=== PATIENT | female | born 1940 | race Caucasian/White ===

== ENCOUNTER 2016-08-21 10:59 | Emergency (ER) | payer MEDICARE, OTHER ==
[~2016-08-21] VITALS: Ht 170.2 cm; Wt 81.8 kg
[2016-08-21 11:01] VITALS: BP 112/60; TEMP 100.1
[2016-08-21 11:42] LABS: BASO % 0.4 % (0.0-2.0); EOS % 0.1 % (0-4.0); GRAN # 5.3 (1.4-6.5); GRAN % 72.4 % (42.2-75.2); HEMATOCRIT 40.6 % (37.0-47.0); HEMOGLOBIN 13.6 g/dl (12.5-16.0); LYMPH # 1.4 (1.2-3.4); LYMPH % 18.6 % (20.0-51.0); MEAN CELL VOLUME 85 fl (80.0-100.0); MEAN CORPUSCULAR HEMOGLOBIN 29 pg (27.0-31.0); MEAN CORPUSCULAR HGB CONC 34 g/dl (33.0-37.0); MEAN PLATELET VOLUME 9.5 fl (7.4-10.4); MONO # 0.6 (0.1-0.6); MONO % 8.4 % (1.7-9.3); PLATELET COUNT 223 K/mm3 (130-400); RED BLOOD COUNT 4.77 M/mm3 (4.10-5.30); REDCELL DISTRIBUTION WIDTH-CV 13.4 % (11.5-14.5); WHITE BLOOD COUNT 7.3 K/mm3 (4.8-10.8)
[2016-08-21 11:51] LABS: ADJUSTED CALCIUM 9.2 mg/dL (8.4-10.2); ALBUMIN 4.1 gm/dL (3.5-5.0); BILIRUBIN,TOTAL 1.1 mg/dL (0.0-1.0); CALCIUM 9.3 mg/dL (8.4-10.2); CREATININE, serum 0.89 mg/dL (0.52-1.25); POTASSIUM 3.3 mmol/L (3.4-5.0)
[2016-08-21 12:07] LABS: PH 5 (5-8); URINE APPEARANCE Cloudy; URINE BACTERIA Rare /hpf; URINE BILIRUBIN Negative (NEGATIVE); URINE BLOOD 1+ (NEGATIVE); URINE COLOR Amber; URINE GLUCOSE Negative (NEGATIVE); URINE KETONE Trace (NEGATIVE)
[2016-08-21 12:08] LABS: URINE WBC >50 /hpf
[2016-08-21] MEDS ORDERED: ZOFRAN 4MG T4 MG/TAB PO (12:47)
[2016-08-21] MEDS ORDERED: OMNICEF 300MG300 MG PO (12:47)
[2016-08-21 13:30] VITALS: PULSE 99
== END 2016-08-21 13:56 | disposition home or self-care (01) ==
LOC: COL.ER 10:59
PROVIDERS: Emergency Medicine
DX: N39.0 Urinary tract infection, site not specified (principal); J44.9 Chronic obstructive pulmonary disease, unspecified; F17.200 Nicotine dependence, unspecified, uncomplicated
CPT/HCPCS: J0696; J7030

== ENCOUNTER 2021-01-16 08:41 | Inpatient (IN) | payer MEDICARE, OTHER ==
[~2021-01-16] VITALS: Ht 170.2 cm; Wt 84.8 kg
[~2021-01-16 08:41] MED LIST: OMNICEF 300MG300 MG PO; ZOFRAN 4MG T4 MG/TAB PO
[2021-02-17] VITALS (12 sets, daily range): BP systolic 99–132; BP diastolic 36–68; PULSE 84–102; TEMP 97–97.9
[2021-02-17] MEDS ORDERED: PLAVIX 75MG TAB75 MG PO (05:57)
[2021-02-17] MEDS ORDERED: ASPIRIN 81M81 MG/TA2 PO (05:57)
[2021-02-17] MEDS ORDERED: PHARMASSURE ZIN50 MG PO (05:57)
[2021-02-17] MEDS ORDERED: HYZAAR 50-12.1 UDTAB PO (05:58)
[2021-02-17] MEDS ORDERED: VITAMIN D250 MCG PO (05:58)
[2021-02-17] MEDS ORDERED: ZYRTEC ALLERGY10 MG PO (05:58)
[2021-02-17] MEDS ORDERED: LIPITOR 40MG TA40 MG PO (05:59)
[2021-02-17] MEDS ORDERED: PROBIOTIC BLEN1 EACH PO (05:59)
--- NOTE | 2021-02-17 06:24 | NUR ---
The patient ambulated back to [facility] independently usinig a steady gait. The patient did have vomit a large amount of red tinged emesis in the waiting room which is states "was from the gatorade". The patientn feels better after the episode and denies any further nausea/vomiting. Vital signs obtained. Consent signed. 18G IV started in right hand with one stick, LR infusing without difficulty. Blood obtained for retype on type and screen ordered. Assessment completed. Warm blanket provided. Son brought back to be at her bedside. Call light is within reach. Will continue to monitor the patient.
--- NOTE | 2021-02-17 07:05 | NUR ---
The patient was taken over to the recovery room to have regional anesthesia placed by anesthesia prior to the OR. The patient's chart was sent with her. The patient's belongings were taken over to the recovery room and will be transferred up with the patient post operatively to the 3rd floor. The patient's son is going to head home and will be called updates to his cellphone.
[2021-02-17] MEDS ORDERED: VITAMIN D 400400 IU PO (12:21)
--- NOTE | 2021-02-17 12:43 | NUR ---
Patient has been resting post op. Vss on O2. Ivf per orders to Pee. Provided her with hot tea and ice water, reports sore throat. I explained Eras protocol. She reports tylenol does not work with her, but I discussed eras. Scds ble. Abdomen rounded, bowels quiet. Lap site x5, bandaids intact. Larger incisions with gauze intact. Will continue to closely monitor.
--- NOTE | 2021-02-17 15:46 | NUR ---
Patient assisted to the chair, she reports feeling slightly dizzy when up. Pain increased after movement. Kpad provided for comfort, she is wanting to avoid narcotics at this time. Champion to DD with pale yellow urine. Vitals stable on room air. Will monitor.
--- NOTE | 2021-02-17 19:16 | NUR ---
Patient sitting up in chair. Her son at bedside. She tolerated clear liquid tray. Ivf. Incisions dressing clean dry & intact. Champion to DD, adequate urine output. report to daniel Casey.
--- NOTE | 2021-02-17 20:30 | NUR ---
ASSISTED BACK TO BED FROM CHAIR AT BEDSIDE. PT IS ALERT AND ORIENTED X4. HAS IVF INFUSING TO RT HAND WITHOUT REDNESS OR SWELLING. HAS LAP SITES X5 AND SMALL MIDLINE INCISION WITH GAUZE DRSG INTACT. TEJADA TO BSD WITH YELLOW URINE. DENIES NEED FOR STRONGER PAIN MEDS, TAKING SCHEDULED ES TYLENOL.
[2021-02-18 00:13] VITALS: BP 111/37; PULSE 91; TEMP 97.8
[2021-02-18 04:19] VITALS: BP 117/38; PULSE 84; TEMP 98.3
--- NOTE | 2021-02-18 05:10 | NUR ---
PT RESTING WELL. IVF CONTINUE. TEJADA WITH 1250CC URINE OUTPUT.
--- NOTE | 2021-02-18 06:15 | NUR ---
PT REPORTS PASSING FLATUS X2 THIS AM.
[2021-02-18 07:14] VITALS: BP 112/43; PULSE 82; TEMP 98
[2021-02-18 07:31] LABS: HEMATOCRIT 30.3 % (37.0-47.0)
[2021-02-18 07:44] LABS: CALCIUM 8.3 mg/dL (8.4-10.2); CREATININE, serum 1.33 mg/dL (0.57-1.11); POTASSIUM 3.6 mmol/L (3.5-4.5)
[2021-02-18 11:12] VITALS: BP 137/51; PULSE 89; TEMP 97.6
--- NOTE | 2021-02-18 11:27 | NUR ---
Patient sitting up in chair. We ambulated halls, dyspnea with exertion. Champion Dc, voided without difficulty. Tolerated a light general diet breakfast. Denies nausea. Reports he has passed flatus. Abdominal incision site dressing Cdi. Bowels are quiet. Will monitor.
--- NOTE | 2021-02-18 13:10 | NUR ---
Plant Breeder offered prayer and support with patient.
--- NOTE | 2021-02-18 15:02 | NUR ---
SW met with patient to complete intake. Patient states that she lives alone in [facility] and her point of contact is her son Raymond Markham. Patient provides that she does not utilize DME and is independent with ADL's. Patient states that her PCP is Dr. Nguyen and her pharmacy is [facility] [place], patient also provides that her DPOA-HC is her son Raymond, and she plans to return to her home upon DC and has no concerns with doing so. SW will continue to follow. DC plan: home/patient provides that her sons stated they will be staying with her upon DC.
--- NOTE | 2021-02-18 15:36 | NUR ---
Patient up to the bathroom. Voided. Watching backetball. Her son visited. WIll monitor.
[2021-02-18 16:00] VITALS: BP 139/44; PULSE 87; TEMP 97.7
[2021-02-18] MEDS ORDERED: ALEVE 220MG220 MG PO (17:33)
--- NOTE | 2021-02-18 17:59 | NUR ---
Patient dinner ordered. Tyelnol per Malick. Patient wondering when she will be able to take alieve again. Encouraged patient to ask doctor in AM when he rounds. Patient was up to the bathroom independently & voided.
--- NOTE | 2021-02-18 20:00 | NUR ---
PT UP IN RECLINER AT BEDSIDE. ASSISTED TO BATHROOM THEN TO BED. VOIDING WELL, GAIT STEADY. HAS SL TO RT HAND, FLUSHES WELL.
[2021-02-18 20:24] VITALS: BP 126/64; PULSE 85; TEMP 97.9
--- NOTE | 2021-02-18 20:29 | NUR ---
MEDICATED WITH HS MEDS INCLUDING OXYCODONE 5MG PO FOR PERSISTENT ABD PAIN. LAP SITES X5 D/I WITH BANDAIDS, GAUZE DRSG TO SMALL MIDLINE, D/I. PASSING GAS WITHOUT DIFFICULTY.
[2021-02-19] VITALS (7 sets, daily range): BP systolic 120–144; BP diastolic 45–59; PULSE 69–83; TEMP 97.6–98.2
--- NOTE | 2021-02-19 00:30 | NUR ---
PT REPORTS RESTING WELL AFTER OXYCODONE. TAKES SCHEDULED ES TYLENOL AT THIS TIME.
--- NOTE | 2021-02-19 05:00 | NUR ---
PT REPORTS GOOD REST. SBA TO BATHROOM, VOIDS AND BACK TO BED.
--- NOTE | 2021-02-19 08:00 | NUR ---
PATIENT IS A&O. VSS. REPORTS ABD PAIN IS MILD, APPROX 2-3. PATIENT REPORTS SHE TOOK A PAIN PILL BEFORE BED AND SLEPT VERY WELL. ABD LAP SITES X5 ARE CD&I WITH BANDAIDS. ABD MIDLINE IS CD&I WITH GAUZE. ABD IS ROUND, SOFT AND WITH POSITIVE BOWL SOUNDS. NO C/O N/V. AM MEDS GIVEN WITH SIPS. HEAD TO TOE ASSESSMENT COMPLETE. PATIENT HOPING TO DISCHARGE HOME LATER TODAY. NO OTHER NEEDS. CALL LIGHT IN REACH.
--- NOTE | 2021-02-19 21:26 | NUR ---
PT IN BED. HAS WILLIS INTACT TO SMALL MIDLINE AND 5 ROBOTIC SITES, ALL D/I. SL TO RT HAND FLUSHES WELL. REPORTS PAIN IS MINIMAL. MEDICATED WITH HS MEDS AT THIS TIME.
--- NOTE | 2021-02-20 00:55 | NUR ---
TAKES OXYCODONE PO FOR MINIMAL ABD PAIN.
[2021-02-20 04:05] VITALS: BP 137/44; PULSE 71; TEMP 98
[2021-02-20 07:32] VITALS: BP 134/52; PULSE 66; TEMP 97.4
[2021-02-20] MEDS ORDERED: PERCOCET 325 MG1 TA2 PO (08:52)
--- NOTE | 2021-02-20 09:38 | NUR ---
Initial visit; Patient and her son thanked for stopping. Rut was elated to tell her son had come to take her home. wished her well.
--- NOTE | 2021-02-20 09:55 | NUR ---
PATIENT IS DISCHARGING HOME VIA WC TO PERSONAL VEHICLE WITH HER SON. GAVE DISCHARGE INSTRUCTIONS, E-SCRIPTS SENT, AND F/U APT DISCUSSED. ANSWERED QUESTIONS/CONCERNS. DC'D RIGHT HAND IV, COVERED WITH BANDAID. PATIENT IS DRESSED, PACKED AND DISCHARGED.
--- NOTE | 2021-02-20 10:00 | NUR ---
PATIENT IS A&O. VSS. DENIES PAIN OR NAUSEA. ABD LAP SITES X5 WITH WILLIS INTACT AND LABOR CONTRACTOR, PATIENT REQUESTING BANDAIDS SO THE WILLIS DO NOT SNAG ON HER CLOTHES. BANDAIDS APPLIED TO LAP SITES AND ABD MIDLINE. ABD IS ROUND, SOFT AND WITH POSITIVE BOWL SOUNDS. BREAKFAST TRAY AT BEDSIDE. AM MEDS GIVEN. RIGHT HAND IV TO INT. HEAD TO TOE ASSESSMENT WNL. PATIENT VOIDING SUFFICIENT AMOUNTS AND HOPING TO DISCHARGE HOME LATER TODAY. PATIENT IS INDEPENDENT IN ROOM. CALL LIGHT IN REACH. NO OTHER NEEDS AT THIS TIME.
== END 2021-02-20 09:55 | disposition home or self-care (01) | DRG 658 ==
LOC: INPTSU 02-17 05:22 → SURG 02-17 05:22
PROVIDERS: ADMIT Urology
PROC: 0TT14ZZ Resection of Left Kidney, Percutaneous Endoscopic Approach (ICD-10-PCS; principal; 2021-02-17 07:30)
DX: C64.2 Malignant neoplasm of left kidney, except renal pelvis (principal); I10 Essential (primary) hypertension; E11.9 Type 2 diabetes mellitus without complications; Z79.82 Long term (current) use of aspirin; Z86.16 Personal history of COVID-19; Z90.710 Acquired absence of both cervix and uterus; Z86.73 Personal history of transient ischemic attack (TIA), and cerebral infarction without residual deficits
CPT/HCPCS: A4314; A9284; J0690; J1100; J2250; J2405; J2704; J2795; J7120

== ENCOUNTER → 2021-02-16 | Outpatient (CLI) | payer MEDICARE, OTHER ==
[~2021-02-16] MED LIST changes: +ALEVE 220MG220 MG PO; +ASPIRIN 81M81 MG/TA2 PO; +HYZAAR 50-12.1 UDTAB PO; +LIPITOR 40MG TA40 MG PO; +PERCOCET 325 MG1 TA2 PO; +PHARMASSURE ZIN50 MG PO; +PLAVIX 75MG TAB75 MG PO; +PROBIOTIC BLEN1 EACH PO; +VITAMIN D 400400 IU PO; +VITAMIN D250 MCG PO; +ZYRTEC ALLERGY10 MG PO
[2021-02-16 13:57] LABS: HEMATOCRIT 39.4 % (37.0-47.0); HEMOGLOBIN 12.9 g/dl (12.5-16.0); MEAN CELL VOLUME 91 fl (80.0-100.0); MEAN CORPUSCULAR HEMOGLOBIN 30 pg (27-31); MEAN CORPUSCULAR HGB CONC 33 g/dl (33.0-37.0); MEAN PLATELET VOLUME 9.3 fl (7.4-10.4); PLATELET COUNT 320 K/mm3 (130-400); RED BLOOD COUNT 4.35 M/mm3 (4.10-5.30); REDCELL DISTRIBUTION WIDTH-CV 13.3 % (11.5-14.5)
[2021-02-16 14:08] LABS: ALBUMIN 4.1 gm/dL (3.4-4.8); BILIRUBIN,TOTAL 0.9 mg/dL (0.2-1.2); CALCIUM 9.7 mg/dL (8.4-10.2); CREATININE, serum 1.22 mg/dL (0.57-1.11); POTASSIUM 3.5 mmol/L (3.5-4.5); TOTAL PROTEIN 7.6 gm/dL (6.2-8.1)
== END ==
LOC: COL.LAB 13:32
PROVIDERS: Urology
DX: E11.9 Type 2 diabetes mellitus without complications (principal); C64.2 Malignant neoplasm of left kidney, except renal pelvis

== ENCOUNTER 2021-08-08 18:19 | Emergency (ER) | payer MEDICARE, OTHER | END 2021-08-08 20:32 | disposition E | LOC: COL.ER 18:19 | DX: I46.9 Cardiac arrest, cause unspecified (principal) | CPT/HCPCS: J0171 ==